=== PATIENT | male | born 1970 | race African-American/Black ===

== ENCOUNTER 2021-04-14 00:44 | Emergency (ER) | payer BC ==
[~2021-04-14] VITALS: Ht 190.5 cm; Wt 91.0 kg
[2021-04-14 00:47] VITALS: BP 122/90
[2021-04-14] MEDS ORDERED: LORAZEPAM 1MG TABLET PO ONE (01:15)
== END 2021-04-14 02:27 | disposition home or self-care (01) ==
LOC: ER 01:48
DX: F41.9 Anxiety disorder, unspecified (principal); B20 Human immunodeficiency virus [HIV] disease
CPT/HCPCS: 99283

== ENCOUNTER 2024-09-22 01:42 | Emergency (ER) | payer BC, MEDICAID ==
[~2024-09-22] VITALS: Ht 182.9 cm; Wt 78.4 kg
[2024-09-22 01:57] VITALS: BP 119/86; PULSE 70; RESP 16; TEMP 98.7; O2SAT 100
== END 2024-09-22 03:47 | disposition home or self-care (01) ==
LOC: ER 01:42
DX: S02.85XA Fracture of orbit, unspecified, initial encounter for closed fracture (principal); F10.20 Alcohol dependence, uncomplicated; F15.90 Other stimulant use, unspecified, uncomplicated; X58.XXXA Exposure to other specified factors, initial encounter; Y93.89 Activity, other specified; Y92.89 Other specified places as the place of occurrence of the external cause; Y99.8 Other external cause status
CPT/HCPCS: 99281

== ENCOUNTER 2024-09-23 17:58 | Emergency (ER) | payer MEDICAID ==
[~2024-09-23] VITALS: Ht 182.9 cm; Wt 79.0 kg
[2024-09-23 18:09] VITALS: BP 117/72; PULSE 98; RESP 16; TEMP 36.9; O2SAT 100
== END 2024-09-23 23:43 | disposition left against medical advice (07) ==
LOC: ER 17:58
DX: Z00.00 Encounter for general adult medical examination without abnormal findings (principal); Z53.21 Procedure and treatment not carried out due to patient leaving prior to being seen by health care provider